=== PATIENT | male | born 1995 ===

== ENCOUNTER 2019-11-13 14:08 | Emergency (ER) | payer SELFPAY ==
--- NOTE | 2019-11-13 14:48 | ER Document Report ---
HPI - HPI Patient complains to provider of: leg pain Time Seen by Provider: 11/13/19 14:44 Onset: Yesterday Onset/Duration: Sudden Severity: Moderate Pain Level: 2 Associated Symptoms: None Exacerbated by: Denies Relieved by: Denies - MUSCULOSKELETAL Musculoskeletal: REPORTS: Extremity pain Past Medical History - General Information source: Patient - Social History Smoking Status: Current Every Day Smoker Chew tobacco use (# tins/day): No Smoking Education Provided: Yes Frequency of alcohol use: Occasional Drug Abuse: None Family History: None Patient has homicidal ideation: No Pulmonary Medical History: Reports: Hx Asthma Vertical Provider Document - CONSTITUTIONAL Agree With Documented VS: Yes - INFECTION CONTROL TRAVEL OUTSIDE OF THE [place] IN LAST 30 DAYS: Yes - HEENT HEENT: Atraumatic, Conjuctival Injection, Normocephalic, PERRLA - NECK Neck: Normal Inspection - RESPIRATORY Respiratory: Breath Sounds Normal, No Respiratory Distress - CARDIOVASCULAR Cardiovascular: Regular Rate, Regular Rhythm - GI/ABDOMEN Gastrointestinal: Abdomen Soft, Abdomen Non-Tender - REPRODUCTIVE Male Genitalia: Normal Inspection - BACK Back: Normal Inspection - MUSCULOSKELETAL/EXTREMETIES Musculoskeletal/Extremeties: MAEW, Eccymosis Notes: Patient has pain and discomfort to the posterior aspect of the right lower extremity good distal pulses he was playing basketball last night some The dog posterior aspect of the lower extremity. Course - Re-evaluation Re-evalutation: 11/13/19 15:02 X-ray was interpreted as negative. Given patient has good distal pulses ambulatory with a deliberate gait. Procedures - Immobilization Right Lower Leg Pre-Proc Neuro Vasc Exam: Normal Immobilizer type: Short Leg Posterior Performed by: RN Post-Proc Neuro Vasc Exam: Normal Alignment checked and good: Yes Discharge - Discharge Clinical Impression: Achilles tendon tear Clinical Impression: (Ruled Out): ACL (anterior cruciate ligament) tear Condition: Good Disposition: HOME, SELF-CARE Instructions: Use of Crutches ([facility]), Oral Narcotic Medication ([facility]), Ice & Elevation ([facility]) Additional Instructions: Rest ice elevate compress must follow-up with Dr. Zhang in 3 to 5 days please follow-up office for an appointment. Prescriptions: Ibuprofen [Motrin 600 Mg Tablet] 600 mg PO TID #15 tablet Hydrocodone/Acetaminophen [[place] 5-325 mg Tablet] 1 tab PO Q6 PRN #12 tablet PRN Reason: Pain Scale Of 5
--- NOTE | 2019-11-13 15:16 | RADIOLOGY REPORT (SQ) ---
EXAM DESCRIPTION: ANKLE RIGHT COMPLETE IMAGES COMPLETED DATE/TIME: 11/13/2019 2:57 pm REASON FOR STUDY: pain COMPARISON: None. NUMBER OF VIEWS: Three views. TECHNIQUE: AP, lateral, and oblique radiographic images acquired of the right ankle. LIMITATIONS: None. FINDINGS: MINERALIZATION: Normal. BONES: No acute fracture or dislocation. No worrisome bone lesions. JOINTS: No effusions. SOFT TISSUES: No soft tissue swelling. No foreign body. OTHER: No other significant finding. IMPRESSION: 1. No acute osseous findings. TECHNICAL DOCUMENTATION: JOB ID: [id number] 2010 [employer]- All Rights Reserved Reading location - IP/workstation name: [facility]
== END 2019-11-13 15:27 | disposition home or self-care (01) ==
LOC: ER 14:08
DX: S86.011A Strain of right Achilles tendon, initial encounter (principal); M79.604 Pain in right leg; X58.XXXA Exposure to other specified factors, initial encounter; Y93.67 Activity, basketball
CPT/HCPCS: 99283